=== PATIENT | male | born 1990 | race African-American/Black ===

== ENCOUNTER 2023-03-09 17:52 | Emergency (ER) | payer MEDICAID ==
[~2023-03-09] VITALS: Ht 185.4 cm; Wt 151.0 kg
[2023-03-09 22:00] VITALS: BP 162/86; PULSE 93; RESP 16; TEMP 98.3; O2SAT 97
[2023-03-09] MEDS ORDERED: LIDOCAINE VISCOUS 2% 15ML UD MT ONE (22:00)
[2023-03-09] MEDS ORDERED: ONDANSETRON ODT 4 MG TAB PO ONE (22:00)
[2023-03-09] MEDS ORDERED: MAALOX PLUS or MAALOX 30 ML PO ONE (22:00)
[2023-03-09 22:31] LABS: Basophils # (auto) 0.1 10 ^3/uL (0-0.2); Eosinophils # (auto) 0 10 ^3/uL (0-0.8); Hemoglobin 17.8 g/dL (13.5-17.5); Lymphocytes # (auto) 1.3 10 ^3/uL (0.4-5.4); Mean Corpuscular Hemoglobin 27.5 pg (28.0-32.0); Neutrophils # (auto) 15.5 10 ^3/uL (1.6-8.6); White Blood Cell 17.7 10^3/uL (4.4-10.8)
[2023-03-09 22:34] LABS: Basophils % (auto) 0.4 % (0.0-2.0); Hematocrit 53.3 % (41.0-53.0); Lymphocytes % (auto) 7.3 % (10.0-50.0); Mean Corpuscular Hgb Conc. 33.3 g/dL (32.0-36.0); Mean Corpuscular Volume 82.5 fL (80.0-100.0); Monocytes # (auto) 0.8 10 ^3/uL (0-1.3); Monocytes % (auto) 4.5 % (0.0-12.0); Neutrophils % (auto) 87.8 % (37.0-80.0); Nucleated Red Blood Cells % 0.3 %; Red Blood Cells 6.47 10^6/uL (4.5-5.90)
[2023-03-09 22:51] LABS: Alanine Aminotransferase 44 U/L (7-40); Albumin 5.1 g/dL (3.2-4.8); Alkaline Phosphatase 104 U/L (46-116); Anion Gap 13 (5-15); Aspartate Aminotransferase 27 U/L (13-40); BUN/Creatinine Ratio 4.5 (10.0-20.0); Bilirubin, Total 0.9 mg/dL (0.2-1.0); Blood Urea Nitrogen 5 mg/dL (9-23); Carbon Dioxide 17 mmol/L (20-30); Chloride 106 mmol/L (98-107); Glucose 151 mg/dL (74-106); Lipase 45 U/L (12-53); Potassium 3.9 mmol/L (3.5-5.1); Sodium 136 mmol/L (136-145); Total Protein 8.6 g/dL (5.7-8.2)
[2023-03-09] MEDS ORDERED: OMEP-448 PO (23:47)
[2023-03-09] MEDS ORDERED: ZOFR4T PO (23:47)
[2023-03-10 00:32] LABS: Urine Bacteria NONE SEEN /hpf (None Seen); Urine Blood TRACE /uL (Negative); Urine Clarity Clear (Clear); Urine Color Yellow (Yellow); Urine Mucus FEW (None Seen); Urine Protein, UAD 1+ (Negative); Urine Specific Gravity 1.018 (1.001-1.035); Urine Urobilinogen Normal (Negative); Urine WBC 10 /hpf (0 - 3)
== END 2023-03-10 00:05 | disposition home or self-care (01) ==
LOC: ER 17:52
DX: K29.70 Gastritis, unspecified, without bleeding (principal)
CPT/HCPCS: 36415; 74176; 80053; 81001; 83690; 85025; 99284; Q0162